=== PATIENT | male | born 1965 | race Two or more races ===

== ENCOUNTER 2022-02-27 21:55 | Emergency (ER) | payer OTHER ==
[~2022-02-27] VITALS: Ht 182.9 cm; Wt 105.2 kg
[~2022-02-27 21:55] MED LIST: ASA81 MG; COZAAR25 MG; METFORMIN HCL500 MG
[2022-02-27] MEDS ORDERED: NORVASC5 MG PO (22:10)
[2022-02-27] MEDS ORDERED: OLANZAPINE10 MG PO (22:10)
[2022-02-27] MEDS ORDERED: CLONAZEPAM0.5 MG PO (22:11)
[2022-02-27] MEDS ORDERED: ULTRAM50 MG (22:11)
[2022-02-27] MEDS ORDERED: CYMBALTA60 MG PO (22:11)
[2022-02-27] MEDS ORDERED: LYRICA150 MG PO (22:12)
== END 2022-02-27 23:46 | disposition home or self-care (01) ==
LOC: ER 21:55
DX: S40.021A Contusion of right upper arm, initial encounter (principal); S40.011A Contusion of right shoulder, initial encounter; S50.11XA Contusion of right forearm, initial encounter; W18.39XA Other fall on same level, initial encounter; Y93.89 Activity, other specified; Y92.89 Other specified places as the place of occurrence of the external cause; Y99.9 Unspecified external cause status; E11.9 Type 2 diabetes mellitus without complications; Z79.84 Long term (current) use of oral hypoglycemic drugs; Z91.013 Allergy to seafood; M79.18 Myalgia, other site

== ENCOUNTER 2024-12-05 11:15 | Emergency (ER) | payer OTHER ==
[~2024-12-05] VITALS: Ht 182.9 cm; Wt 104.3 kg
[~2024-12-05 11:15] MED LIST changes: +CIPRO500 MG PO; +CLONAZEPAM0.5 MG PO; +CYMBALTA60 MG PO; +LEVSIN/SL0.125 MG SL; +LYRICA150 MG PO; +METRONIDAZOLE500 MG PO; +NORVASC5 MG PO; +OLANZAPINE10 MG PO; +PEPCID AC20 MG PO; +ULTRAM50 MG
[2024-12-05 11:53] VITALS: BP 122/82; O2SAT 92
[2024-12-05 13:02] LABS: BASO % 0.5 % (0.1-1.2); EOS # 0.08 (0.04-0.54); EOS % 1.2 % (0.7-7.0); LYMPH # 1.66 (1.18-3.74); LYMPH % 25.7 % (19.3-53.1); MEAN PLATELET VOLUME 8.80 fl (9.4-12.4); MONO # 0.49 (0.24-0.82); MONO % 7.6 % (4.7-12.5); NEUT # 4.15 (1.56-6.13); NEUT % 64.4 % (34.0-71.1); RED CELL DISTRIBUTION WIDTH 12.4 % (11.6-14.4)
[2024-12-05 13:34] LABS: COVID-19 AG NEGATIVE (NEGATIVE)
[2024-12-05] MEDS ORDERED: VERTICALM25 MG PO (13:40)
== END 2024-12-05 14:56 | disposition home or self-care (01) ==
LOC: ER 11:15
PROVIDERS: General Practice
DX: R51.9 Headache, unspecified (principal); R42 Dizziness and giddiness; R20.0 Anesthesia of skin; Z20.822 Contact with and (suspected) exposure to COVID-19; I10 Essential (primary) hypertension; Z91.013 Allergy to seafood